=== PATIENT | male | born 1985 | race Two or more races ===

== ENCOUNTER 2016-03-29 22:47 | Emergency (ER) | payer OTHER, MEDICAID ==
--- NOTE | 2016-03-29 23:49 | EDPHY ---
H & P Stated Complaint: SORE THROAT AND COUGH Time Seen by Provider: 03/29/16 23:41 HPI/ROS: CHIEF COMPLAINT: cough, sore throat x1 week HISTORY OF PRESENT ILLNESS: 30-year-old homeless male, immunocompetent, daily cigarette smoker, complaining of 1 week of nonproductive cough, sore throat, Sinus congestion. Denies: Fever, chills, flu-like symptoms, nuchal rigidity, dyspnea, chest pain, back pain, abdominal pain, rash. PRIMARY CARE PROVIDER: the [facility] REVIEW OF SYSTEMS: A ten point review of systems was performed and is negative with the exception of the items mentioned in the HPI PAST MEDICAL & SURGICAL HISTORY: no history of chronic respiratory disease SOCIAL HISTORY: daily smoker PHYSICAL EXAM (Prior to examination, patient consented to physical exam, hands were washed and my usual and customary physical exam procedures followed) 1) GENERAL: Well-developed, well-nourished, alert and oriented. Appears to be in no acute distress.He is sleeping. Appears comfortable. 2) HEAD: Normocephalic, atraumatic 3) HEENT: Pupils equal, round, reactive to light bilaterally. Sclera anicteric. Nasopharynx, oropharynx, clear, no lesions. No tonsillar enlargement. No tonsillar exudate. Uvula midline. Airway patent Ears bilaterally with normal tympanic membranes. 4) NECK: Full range of motion, no meningeal signs. 5) LUNGS: Clear auscultation bilaterally, no wheezes, no rhonchi, no retractions. 6) HEART: Regular rate and rhythm, no murmur, no heave, no gallop. 7) ABDOMEN: No guarding, no rebound, no focal tenderness, negative McBurney's, 8) MUSCULOSKELETAL: Moving all extremities, no focal areas of tenderness, no obvious trauma. No peripheral edema or discoloration. 9) BACK: No CVA tenderness. 10) SKIN: No rash, no petechiae. 11) Psychiatric: Patient is oriented X 3, there is no agitation. DIFFERENTIAL DIAGNOSIS: in no particular include but limited to bronchitis, pneumonia, influenza - Personal History Current Tetanus Diphtheria and Acellular Pertussis (TDAP): Yes - Medical/Surgical History Other PMH: DENIES - Social History Smoking Status: Current every day smoker Constitutional: Initial Vital Signs Temperature (C) 36.7 C 03/29/16 23:05 Heart Rate 95 03/29/16 23:05 Respiratory Rate 16 03/29/16 23:05 Blood Pressure 125/77 H 03/29/16 23:05 O2 Sat (%) 96 03/29/16 23:05 O2 Delivery Mode Room Air Allergies/Adverse Reactions: No Known Allergies Allergy (Unverified 03/29/16 23:15) Home Medications: Medication Instructions Recorded "All Psych Meds" 03/29/16 AZITHROMYCIN [Z-PACK] 500 mg PO DAILY #1 packet 03/29/16 Medical Decision Making ED Course/Re-evaluation: In addition, I do not identify indication for chest x-ray as the patient's lungs are clear bilaterally, has a normal pulse ox, speaking full sentences, no signs of respiratory distress. Plan will be treatment with azithromycin which has been filled via the hospital [facility] program. Recommend smoking cessation. The patient understands that this diagnosis is provisional and can never be 100 % accurate. Usual and customary warnings were given concerning the clinical impression and all the patient's questions were answered. The patient was instructed to return to the emergency department should her symptoms worsen or return, or develop any new symptoms, otherwise to followup as directed in discharge instructions. Departure - Departure Disposition: Home, Routine, Self-Care Clinical Impression: Upper respiratory tract infection Qualifiers: URI type: unspecified URI Qualifier Code: (J06.9) Acute upper respiratory infection, unspecified Condition: Good Instructions: Upper Respiratory Infection (ED) Additional Instructions: Return to the emergency department immediately for change in breathing habits, change in voice, change in swallowing habits, change in mental status, or any other symptoms that concern you. Referrals: [facility] [Outside] - 5-7 days, call for appt. Prescriptions: AZITHROMYCIN [Z-PACK] 500 mg PO DAILY #1 packet
[2016-03-30] MEDS ORDERED: AZITHROMYCIN 250 MG TAB PO SCH
[2016-03-30 01:00] VITALS: BP 124/76; PULSE 101; RESP 18; TEMP 98.6; O2SAT 93
== END 2016-03-30 01:00 | disposition home or self-care (01) ==
DX: J06.9 Acute upper respiratory infection, unspecified (principal); F17.200 Nicotine dependence, unspecified, uncomplicated